=== PATIENT | male | born 1945 | race African-American/Black ===

== ENCOUNTER 2021-01-30 12:50 | Outpatient (CLI) | payer MEDICARE ==
[~2021-01-30 12:50] MED LIST: Iopamidol-370 76% 500 ML 1 ML ONE
== END 2021-01-30 12:51 | disposition home or self-care (01) ==
LOC: BICCT 12:50
PROVIDERS: ATTEND Internal Medicine Cardiovascular Disease
DX: I65.23 Occlusion and stenosis of bilateral carotid arteries (principal)
CPT/HCPCS: 70498; 82565; Q9967

== ENCOUNTER 2021-03-08 05:44 | Day surgery (SDC) | payer MEDICARE ==
[2021-03-07 11:01] VITALS: BMI 31.7
[2021-03-08] MEDS ORDERED: Lidocaine 1% PF 5 ML VIAL ONE (07:38)
[2021-03-08] MEDS ORDERED: PROPOFOL 200 MG/20 ML VIAL ONE (07:38)
[2021-03-08] MEDS ORDERED: Ondansetron PF 4 MG/2 ML Vial ONE (07:38)
[2021-03-08] MEDS ORDERED: Sodium Chloride For Inhalation 0.9% 3 ML NEB ONE (08:26)
[2021-03-08] MEDS ORDERED: Albuterol Sulfate 1.25 MG/3 ML NEB ONE (08:26)
== END 2021-03-08 11:25 | disposition home or self-care (01) ==
LOC: SDC 05:44
PROVIDERS: ATTEND Internal Medicine
PROC: 0DBK8ZZ Excision of Ascending Colon, Via Natural or Artificial Opening Endoscopic (ICD-10-PCS; principal; 2021-03-08)
PROC: 0DBL8ZX Excision of Transverse Colon, Via Natural or Artificial Opening Endoscopic, Diagnostic (ICD-10-PCS; 2021-03-08)
PROC: 0DBM8ZX Excision of Descending Colon, Via Natural or Artificial Opening Endoscopic, Diagnostic (ICD-10-PCS; 2021-03-08)
DX: Z12.11 Encounter for screening for malignant neoplasm of colon (principal); D12.3 Benign neoplasm of transverse colon; E78.5 Hyperlipidemia, unspecified; I10 Essential (primary) hypertension; E11.9 Type 2 diabetes mellitus without complications; M19.90 Unspecified osteoarthritis, unspecified site; K57.30 Diverticulosis of large intestine without perforation or abscess without bleeding; C61 Malignant neoplasm of prostate; Z53.09 Procedure and treatment not carried out because of other contraindication; Z86.010 Personal history of colon polyps; Z79.4 Long term (current) use of insulin; Z79.899 Other long term (current) drug therapy
CPT/HCPCS: 36416; 88305; J2405; J2704

== ENCOUNTER 2024-02-19 12:03 | Outpatient (CLI) | payer MEDICARE | END 2024-02-19 12:04 | disposition home or self-care (01) | LOC: BICULT 12:03 | PROVIDERS: ATTEND Internal Medicine Nephrology | DX: N18.30 Chronic kidney disease, stage 3 unspecified (principal) | CPT/HCPCS: 76770 ==

== ENCOUNTER 2024-05-15 07:19 | Outpatient (CLI) | payer MEDICARE | END 2024-05-15 07:20 | disposition home or self-care (01) | LOC: BICULT 07:19 | PROVIDERS: ATTEND Family Medicine | DX: R74.8 Abnormal levels of other serum enzymes (principal); J90 Pleural effusion, not elsewhere classified; N28.1 Cyst of kidney, acquired | CPT/HCPCS: 76700 ==